=== PATIENT | male | born 1935 | race Caucasian/White ===

== ENCOUNTER → 2018-08-19 | Outpatient (CLI) | payer MEDICARE | END | disposition home or self-care (01) | LOC: PCVCCLINIC 16:00 | PROVIDERS: ATTEND Internal Medicine Cardiovascular Disease | DX: I48.0 Paroxysmal atrial fibrillation (principal); E78.00 Pure hypercholesterolemia, unspecified; I95.9 Hypotension, unspecified; R33.9 Retention of urine, unspecified; I21.4 Non-ST elevation (NSTEMI) myocardial infarction; E03.8 Other specified hypothyroidism; D68.59 Other primary thrombophilia; Z86.718 Personal history of other venous thrombosis and embolism; Z86.79 Personal history of other diseases of the circulatory system | CPT/HCPCS: 36415; 80061; 93005; G0463 ==

== ENCOUNTER → 2018-09-25 | Outpatient (CLI) | payer MEDICARE, OTHER ==
--- NOTE | 2018-09-25 14:09 | PCVCIMAG ---
APPROVED REPORT Study performed: 09/25/2018 13:01:23 EXAM: Comprehensive 2D, Doppler, and color-flow Echocardiogram Patient Location: Echo lab Status: routine BSA: 1.88 HR: 68 bpmBP: 122/70 mmHg Rhythm: Atrial Fibrillation Other Information Study Quality: Technically Difficult Risk Factors: Cardiac Risk Factors: HTN, Hyperlipidemia Indications paroxysmal atrial fib. Chf, Non-stemi NE 2D Dimensions IVSd: 15.49 (7-11mm)LVOT Diam: 24.12 (18-24mm) LVDd: 45.04 mm PWd: 11.29 (7-11mm)Ascending Ao: 40.13 (22-36mm) LVDs: 39.92 (25-40mm) Left Atrium: 39.59 (27-40mm) Aortic Root: 37.88 mm LV Single Plane 4CH: 44.04 % LV Single Plane 2CH: 59.27 % Biplane EF: 51.0 % Volumes Left Atrial Volume (Systole) Single Plane 4CH: 51.48 mLSingle Plane 2CH: 49.59 mL LA ESV Index: 27.00 mL/m2 Aortic Valve AoV Peak Harvey.: 2.09 m/s AO Peak Gr.: 17.52 mmHgLVOT Max P.82 mmHg AO Mean Gr.: 9.99 mmHg AO V2 Mean: 1.48 m/sLVOT Max V: 0.99 m/s AO V2 VTI: 41.53 cm CAESAR Vmax: 2.16 cm2 Mitral Valve E/A Ratio: 0.6 MV Decel. Time: 170.35 ms MV E Max Harvey.: 0.68 m/s MV A Harvey.: 1.07 m/s Pulmonary Valve PV Peak Gr.: 2.16 mmHg Tricuspid Valve TR Peak Harvey.: 2.43 m/s TR Peak Gr.: 23.58 mmHg Left Ventricle The left ventricle is normal size. There is normal LV segmental wall motion. There is normal left ventricular wall thickness. Left ventricular systolic function is normal. The left ventricular ejection fraction is within the normal range. LVEF is 40-45%.mild global hypo This study is not technically sufficient to allow evaluation of the LV diastolic function due to atrial fibrillation. Right Ventricle The right ventricle is normal size. The right ventricular systolic function is normal. Atria The left atrium size is normal. The right atrium size is normal. Aortic Valve The aortic valve is normal in structure. Trace to mild aortic regurgitation. There is no aortic valvular stenosis. Mitral Valve The mitral valve is normal in structure. There is no mitral valve regurgitation noted. No evidence of mitral valve stenosis. Tricuspid Valve The tricuspid valve is normal in structure. Trace tricuspid regurgitation. Pulmonary artery pressure is 34mmHg. Pulmonic Valve The pulmonary valve is normal in structure. There is no pulmonic valvular regurgitation. Great Vessels The aortic root is normal in size. The ascending aorta is borderline dilatedkk measuring 4.0cm2. IVC is normal in size and collapses >50% with inspiration. Pericardium There is no pericardial effusion. <Conclusion> The left ventricle is normal size. LVEF is 40-45%.mild global hypo The right ventricle is normal size. The left atrium size is normal. Trace to mild aortic regurgitation. There is no mitral valve regurgitation noted. Trace tricuspid regurgitation. Pulmonary artery pressure is 34mmHg. The aortic root is normal in size. There is no pericardial effusion. The ascending aorta is borderline dilatedkk measuring 4.0cm2.
== END | disposition home or self-care (01) ==
LOC: PCVCIMAG 12:51
PROVIDERS: ATTEND Internal Medicine Cardiovascular Disease
DX: I35.1 Nonrheumatic aortic (valve) insufficiency (principal); I48.0 Paroxysmal atrial fibrillation; I11.0 Hypertensive heart disease with heart failure; I50.9 Heart failure, unspecified; I25.2 Old myocardial infarction; I21.4 Non-ST elevation (NSTEMI) myocardial infarction; E78.5 Hyperlipidemia, unspecified; D68.59 Other primary thrombophilia; R33.9 Retention of urine, unspecified; E78.00 Pure hypercholesterolemia, unspecified; Z86.2 Personal history of diseases of the blood and blood-forming organs and certain disorders involving the immune mechanism; Z86.718 Personal history of other venous thrombosis and embolism; Z86.79 Personal history of other diseases of the circulatory system; Z72.89 Other problems related to lifestyle; Z79.899 Other long term (current) drug therapy
CPT/HCPCS: 93306